=== PATIENT | female | born 2000 | race Caucasian/White ===

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

== ENCOUNTER 2021-02-26 15:41 | Outpatient (REF) | payer BC, SELFPAY ==
--- NOTE | ~2021-02-26 | US_ITS ---
EXAMINATION: US RETROPERITONEAL LIMITED (RENAL ONLY) CLINICAL INFORMATION: Calculus of kidney. COMPARISON: CT abdomen and pelvis 12/12/2020. TECHNIQUE: Real-time imaging of the kidneys. FINDINGS: RIGHT KIDNEY: 11.0 x 4.3 x 5.9 cm (SAG x AP x TRV). The kidney is normal in size, contour, and echogenicity. Renal cortical thickness is normal. 4 mm nonobstructing mid pole calculus. No hydronephrosis. LEFT KIDNEY: 12.1 x 4.6 x 5.2 cm (SAG x AP x TRV). The kidney is normal in size, contour, and echogenicity. Renal cortical thickness is normal. No calculi or focal parenchymal lesions. No hydronephrosis. US/US renal BI IMPRESSION: 4 mm nonobstructing right renal calculus. No hydronephrosis.
== END 2021-02-26 15:42 | disposition home or self-care (01) ==
LOC: HO.HMGCX 15:41
PROVIDERS: Visit Provider Urology
DX: N20.0 Calculus of kidney (principal)
CPT/HCPCS: 76775

== ENCOUNTER → 2021-08-19 15:32 | Outpatient (BNVA) | payer BC, SELFPAY | PROVIDERS: Visit Provider Advanced Practice Midwife ==

== ENCOUNTER → 2021-11-01 14:09 | Outpatient (BNVA) | payer BC, SELFPAY | PROVIDERS: Visit Provider Advanced Practice Midwife | DX: Z13.89 Encounter for screening for other disorder (principal) ==

== ENCOUNTER 2023-03-17 14:38 | Outpatient (REF) | payer BC, SELFPAY ==
[2023-03-18 11:41] LABS: CT PCR NOT DETECTED (Not Detect.); NG PCR NOT DETECTED (Not Detect.)
== END 2023-03-17 14:39 | disposition home or self-care (01) ==
LOC: HO.LNP 14:38
PROVIDERS: Visit Provider Advanced Practice Midwife
DX: Z01.419 Encounter for gynecological examination (general) (routine) without abnormal findings (principal); Z20.2 Contact with and (suspected) exposure to infections with a predominantly sexual mode of transmission; L68.0 Hirsutism; R35.0 Frequency of micturition; N92.6 Irregular menstruation, unspecified
CPT/HCPCS: 0353U; 88142

== ENCOUNTER 2023-03-17 14:38 | Outpatient (AMB) | payer BC, SELFPAY ==
--- NOTE | 2023-03-17 14:45 | A.OFFVIS_ITS ---
Intake Vital Signs 03/17/23 14:46 03/17/23 16:18 Height 5 ft 5 in Weight 224 lb BMI 37.3 37.3 BP 112/76 Intake Visit Reasons: Annual Intake Note: The patient agreed to use of a medical microbiologist during this encounter. Scribed for ANGEL LUIS Le by Cintia Avila medical microbiologist, on 03/17/2023 at 3:00 pm EST. Chef De Cuisine: Chef De Cuisine Present (Antionette) Allergies sulfamethoxazole [From BACTRIM] Allergy (Intermediate, Verified 03/17/23 14:46) HIVES trimethoprim [From BACTRIM] Allergy (Intermediate, Verified 03/17/23 14:46) HIVES bactrim Allergy (Unknown, Uncoded 05/31/22 11:05) hives Is last menstrual period known: Yes Last menstrual period: 03/12/23 HPI HPI Comments History of Present Illness Details She is a premenopausal woman presenting for annual exam. She admits to not eating healthy since vacationing, but has lost weight successfully on her own in the past. Complains of frequency of urination and was previously taking OTC cranberry supplements but stopped. Currently sexually active. Uses [facility] for BC. Reports irregular menses and hirsutism. FMHx of PCOS; mother. Denies vaginal itching and irritation. STD screening offered; she accepts. Denies family hx of breast, colon and ovarian cancer. [facility] Medical History Anxiety Frequency of urination Hirsutism Irregular menses Kidney stones Surgical History History of surgery Family History Father Diabetes Mother PCOS (polycystic ovarian syndrome) Social History Alcohol intake: current Alcohol intake frequency: holidays/special occasions only Patient Tobacco Use Status: Never used Tobacco Substance Use Type: Marijuana Advance Directives: No Advance Directives Information Provided: No Sexual orientation: Straight/Heterosexual Gender identity: Female Female Reproductive History Menstrual Age of Menarche: 14 Duration of menses: 6-7 days Date of last menstrual period: 03/12/23 control method: pills Total pregnancies: 0 Physical Exam Vital Signs: Last Vital Signs BP 112/76 03/17/23 14:46 BMI result Body Mass Index 37.3 Const General: cooperative, healthy appearing, no acute distress, well developed and alert Orientation/consciousness: patient oriented x3 HEENT Other: small amount of facial hair present; trimmed. Head: Yes normal to inspection Eyes General: appearance normal, both eyes and all related structures Neck Neck: Yes normal visual inspection Thyroid: Thyroid normal Chest Chest palpation & inspection: normal inspection of the chest Breast/axilla inspection: normal inspection of the breasts (no puckering, dimpling, peau de orange, retraction, discharge, masses) Breast/axilla palpation: normal palpation of the breasts Resp Effort & Inspection: normal respiratory effort GI Inspection: Yes normal to inspection Palpation (GI): Soft to palpation (to palpation) Rectal Exam - Female: deferred General: Yes bladder normal to inspection External Female Exam: normal external appearance and normal appearance of the urethra Speculum Exam - Vagina: normal appearance of the vagina, normal palpation, normal vaginal discharge and other (small amount of blood present) Speculum Exam - Cervix: normal appearance of the cervix and normal palpation Bimanual exam- vagina & uterus: normal palpation and normal palpation Bimanual Exam- Adnexa, other: normal adnexae and no masses Skin General skin exam: no rashes or lesions noted Neuro General: patient oriented x3 Cognition (Neuro): normal cognition Extrem General: Yes normal to inspection Psych Attitude: cooperative Thought process: Normal thought process present Assessment & Plan Assessment & Plan (1) Encounter for well woman exam: Code(s): Z01.419 - Encounter for gynecological examination (general) (routine) without abnormal findings Plan: Discussed: Current recommendations for pap smears per ASCCP guidelines Breast awareness and periodic self breast exams. Maintaining a healthy lifestyle including a well balanced diet and routine exercise. Encouraged to use condoms for STD prevention. Encouraged patient to sign up for patient portal. All of her questions and concerns were addressed to the best of my ability. RTO in one year for AG. (2) Hirsutism: Code(s): L68.0 - Hirsutism Plan: Blood work ordered. Follow up for results. (3) Potential exposure to STD: Code(s): Z20.2 - Contact with and (suspected) exposure to infections with a predominantly sexual mode of transmission Plan: BV testing and GC/CT panel done today. Await results and treat accordingly. (4) Irregular menses: Code(s): N92.6 - Irregular menstruation, unspecified Plan: Pelvic US ordered. Follow up for results. (5) Frequency of urination: Code(s): R35.0 - Frequency of micturition (6) Hirsutism: Code(s): L68.0 - Hirsutism (7) Oligomenorrhea: Code(s): N91.5 - Oligomenorrhea, unspecified Orders: Orders US pelvic and transvaginal 03/17/23 N92.6 - Irregular menstruation, unspecified Pap Smear 03/17/23 Z01.419 - Encounter for gynecological examination (general) (routine) without abnormal findings UA CC w/rflx Micro + Cult 03/17/23 R35.0 - Frequency of micturition Hepatitis C Antibody 03/17/23 Z20.2 - Contact with and (suspected) exposure to infections with a predominantly sexual mode of transmission Testosterone, Free/Total 03/17/23 N92.6 - Irregular menstruation, unspecified, L68.0 - Hirsutism Thyroid Stimulating Hormone 03/17/23 N92.6 - Irregular menstruation, unspecif ied, L68.0 - Hirsutism 17 Hydroxyprogesterone 03/17/23 N92.6 - Irregular menstruation, unspecified, L68.0 - Hirsutism CT NG by PCR 03/17/23 Z20.2 - Contact with and (suspected) exposure to infections with a predominantly sexual mode of transmission Hepatitis B Core Antibody 03/17/23 Z20.2 - Contact with and (suspected) exposure to infections with a predominantly sexual mode of transmission HIV Ab/Ag 03/17/23 Z20.2 - Contact with and (suspected) exposure to infections with a predominantly sexual mode of transmission Syphilis Screen 03/17/23 Z20.2 - Contact with and (suspected) exposure to infections with a predominantly sexual mode of transmission DHEA Sulfate 03/17/23 N92.6 - Irregular menstruation, unspecified, L68.0 - Hirsutism Prolactin 03/17/23 N92.6 - Irregular menstruation, unspecified, L68.0 - Hirsutism HCG Quantitative 03/17/23 N92.6 - Irregular menstruation, unspecified, L68.0 - Hirsutism Follicle Stimulating Hormone 03/17/23 N91.5 - Oligomenorrhea, unspecified Coding Level of Care Code Est Pt Prev Care 18-39y([id number]) Diagnoses Encounter for well woman exam Z01.419 Hirsutism L68.0 Potential exposure to STD Z20.2 Irregular menses N92.6 Frequency of urination R35.0 Oligomenorrhea N91.5
[2023-03-17 14:46] VITALS: BP 112/76; BMI 37.3
--- NOTE | 2023-03-17 16:17 | A.OFFVIS_ITS ---
Intake Vital Signs 03/17/23 14:46 03/17/23 16:18 Height 5 ft 5 in Weight 224 lb BMI 37.3 37.3 BP 112/76 Intake Visit Reasons: Annual Allergies sulfamethoxazole [From BACTRIM] Allergy (Intermediate, Verified 03/17/23 14:46) HIVES trimethoprim [From BACTRIM] Allergy (Intermediate, Verified 03/17/23 14:46) HIVES bactrim Allergy (Unknown, Uncoded 05/31/22 11:05) hives HPI HPI Comments History of Present Illness Details She is a premenopausal woman presenting for annual exam. She admits to eating healthy and tries to stay active with exercise. Reports during vacation this summer she loss weight and she knows she can loose weight with proper diet if she tried. Reports Hx of UTI and frequent urination; has stopped taking OTC cranberry supplements Currently sexually active. Uses Apri for BC and is doing well with it. Report hirsutism and irregular menses skipping 6 months at a time. FMHx of PCOS; mother Denies vaginal itching and irritation. STD screening offered; she accepts. Denies family hx of breast, colon and ovarian cancer. This is her first pap smear today. [facility] Medical History Anxiety Frequency of urination Hirsutism Irregular menses Kidney stones Surgical History History of surgery Family History Father Diabetes Mother PCOS (polycystic ovarian syndrome) Social History Alcohol intake: current Alcohol intake frequency: holidays/special occasions only Patient Tobacco Use Status: Never used Tobacco Substance Use Type: Marijuana Sexual orientation: Straight/Heterosexual Gender identity: Female Female Reproductive History Menstrual Age of Menarche: 14 Duration of menses: 6-7 days control method: pills Physical Exam Vital Signs: Last Vital Signs BP 112/76 03/17/23 14:46 BMI result Body Mass Index 37.3 Const General: cooperative, healthy appearing, no acute distress, well developed and alert Orientation/consciousness: patient oriented x3 HEENT Other: small amount of facial hair visible; trimmed Head: Yes normal to inspection Eyes General: appearance normal, both eyes and all related structures Neck Neck: Yes normal visual inspection Thyroid: Thyroid normal Chest Chest palpation & inspection: normal inspection of the chest Breast/axilla inspection: normal inspection of the breasts (no puckering, dimpling, peau de orange, retraction, discharge, masses) Breast/axilla palpation: normal palpation of the breasts Resp Effort & Inspection: normal respiratory effort GI Inspection: Yes normal to inspection Palpation (GI): Soft to palpation (to palpation) Rectal Exam - Female: deferred General: Yes bladder normal to inspection External Female Exam: normal external appearance and normal appearance of the urethra Speculum Exam - Vagina: normal appearance of the vagina, normal palpation, normal vaginal discharge and other (small amount of blood present) Speculum Exam - Cervix: normal appearance of the cervix and normal palpation Bimanual exam- vagina & uterus: normal palpation and normal palpation Bimanual Exam- Adnexa, other: normal adnexae and no masses Skin General skin exam: no rashes or lesions noted Neuro General: patient oriented x3 Cognition (Neuro): normal cognition Extrem General: Yes normal to inspection Psych Attitude: cooperative Thought process: Normal thought process present Assessment & Plan Assessment & Plan (1) Hirsutism: Code(s): L68.0 - Hirsutism Plan: PCOS lab work ordered. Follow up for results. (2) Irregular menses: Code(s): N92.6 - Irregular menstruation, unspecified Plan: Pelvic US ordered. Follow up for results in person. BV testing and GC/CT panel today. STD blood work ordered. Await results and treat accordingly. (3) Frequency of urination: Code(s): R35.0 - Frequency of micturition Plan: UA lab ordered. Follow up for results in person. Continue OTC cranberry supplements. (4) Encounter for well woman exam: Code(s): Z01.419 - Encounter for gynecological examination (general) (routine) without abnormal findings Plan: Discussed: Current recommendations for pap smears per ASCCP guidelines Breast awareness and periodic self breast exams. Maintaining a healthy lifestyle including a well balanced diet and routine exercise. Encouraged to use condoms for STD prevention. Encouraged patient to sign up for patient portal. All of her questions and concerns were addressed to the best of my ability. RTO in one year for AG. Orders: Orders CT NG by PCR Today Z20.2 - Contact with and (suspected) exposure to infections with a predominantly sexual mode of transmission US pelvic and transvaginal Today N92.6 - Irregular menstruation, unspecified UA CC w/rflx Micro + Cult Today R35.0 - Frequency of micturition Hepatitis B Core Antibody Today Z20.2 - Contact with and (suspected) exposure to infections with a predominantly sexual mode of transmission Hepatitis C Antibody Today Z20.2 - Contact with and (suspected) exposure to infections with a predominantly sexual mode of transmission HIV Ab/Ag Today Z20.2 - Contact with and (suspected) exposure to infections with a predominantly sexual mode of transmission Syphilis Screen Today Z20.2 - Contact with and (suspected) exposure to infections with a predominantly sexual mode of transmission 17 Hydroxyprogesterone Today L68.0 - Hirsutism, N92.6 - Irregular menstruation, unspecified DHEA Sulfate Today L68.0 - Hirsutism, N92.6 - Irregular menstruation, unspecified HCG Quantitative Today L68.0 - Hirsutism, N92.6 - Irregular menstruation, unspecified Prolactin Today L68.0 - Hirsutism, N92.6 - Irregular menstruation, unspecified Testosterone, Free/Total Today L68.0 - Hirsutism, N92.6 - Irregular menstruation, unspecified Thyroid Stimulating Hormone Today L68.0 - Hirsutism, N92.6 - Irregular menstruation, unspecified Follicle Stimulating Hormone Today N91.5 - Oligomenorrhea, unspecified Pap Smear Today Z01.419 - Encounter for gynecological examination (general) (routine) without abnormal findings Coding Level of Care Code Est Pt Prev Care 18-39y(13795) Diagnoses Hirsutism L68.0 Irregular menses N92.6 Frequency of urination R35.0 Encounter for well woman exam Z01.419
[2023-03-17 16:18] VITALS: BMI 37.3
== END 2023-03-17 15:16 | disposition home or self-care (01) ==
LOC: HO.HWS 14:38
PROVIDERS: Visit Provider Advanced Practice Midwife
DX: Z01.419 Encounter for gynecological examination (general) (routine) without abnormal findings (principal); L68.0 Hirsutism; N92.6 Irregular menstruation, unspecified; R35.0 Frequency of micturition
CPT/HCPCS: 99395

== ENCOUNTER 2023-03-23 01:32 | Emergency (ER) | payer BC, SELFPAY ==
[2023-03-23 01:40] VITALS: BP 130/82; PULSE 52; RESP 16; TEMP 36.7; O2SAT 96; BMI 34.2
[2023-03-23 02:43] LABS: Appearance Urine Cloudy; Color Urine Orange; Glucose Urine UA Negative (Negative); Leukocyte Esterase Urine Moderate (2+) (Negative); Nitrite Urine Positive (Negative); UMIC TRIGGER UACC YES; UPreg QC Valid YES; Urine Blood Trace (Negative); Urine Ketones Trace mg/dL (Negative); Urine Pregnancy NEGATIVE (NEGATIVE); Urine Protein 30 (1+) mg/dL (Neg-Trace)
[2023-03-23 03:25] LABS: Bacteria Urine 3+ (None Seen); Hyaline Casts Urine 0-2 /LPF (0-2); RBC Urine >20 /HPF (0-2); UACC Culture Trigger YES; WBC Urine 0-5 /HPF (0-5)
[2023-03-23 04:06] LABS: MANUAL DIFF FLAG NO
[2023-03-23 04:09] LABS: Basophils Absolute Auto 0.1 X10*3/uL (0.0-0.2); Basophils Percent Auto 0.4 % (0-2); Eosinophils Absolute Auto 0.1 X10*3/uL (0.0-0.4); Eosinophils Percent Auto 0.4 % (0-4); Hematocrit 38.3 % (37.0-47.0); Hemoglobin 13.1 g/dl (12.0-16.0); Imm Gran Abs Auto 0.04 X10*3/uL (0.00-0.03); Imm Gran Pct Auto 0.3 % (0.0-0.4); Lymphocytes Absolute Auto 1.6 X10*3/uL (1.2-4.9); Mean Corpuscular HGB Conc 34.2 g/dl (31.0-35.0); Mean Corpuscular Hemoglobin 30.8 pg (27.0-33.0); Mean Corpuscular Volume 90.1 fL (80.0-98.0); Mean Platelet Volume 11.4 fL (9.4-12.3); Monocytes Absolute Auto 0.8 X10*3/uL (0.1-1.2); Monocytes Percent Auto 6.6 % (2-11); Neutrophils Absolute Auto 9.4 x10*3/uL (2.0-8.3); Neutrophils Percent Auto 79.3 % (45-73); Platelet Count 258 X10*3/uL (160-400); Red Blood Count 4.25 X10*6/uL (4.20-5.50); Red Cell Distribution Width 13.4 % (11.0-16.0); White Blood Count 11.9 X10*3/uL (4.8-10.8)
[2023-03-23 04:28] LABS: Alanine Aminotransferase 38 U/L (0-31); Albumin Level 4.4 g/dL (3.5-5.0); Alkaline Phosphatase 57 U/L (39-117); Anion Gap 14 (12-20); Aspartate Amino Transferase 25 U/L (5-31); Bilirubin Total 0.7 mg/dL (0.0-1.0); Blood Urea Nitrogen 14 mg/dL (9-16); Calcium 10.1 mg/dL (8.4-10.2); Carbon Dioxide 23 mmol/L (22-29); Chloride 106 mmol/L (96-108); Creatinine Clr Calc Pharmacy 103.9; Estimated Glomerular Filt Rate > 60; Glucose Random 137 mg/dL (60-115); Potassium 3.7 mmol/L (3.3-5.1); Sodium 139 mmol/L (135-145); Total Protein 7.7 g/dL (6.5-8.0)
[2023-03-23 04:52] VITALS: BP 134/95; PULSE 56; RESP 18; TEMP 36.4; O2SAT 96
[2023-03-23] MEDS: cefTRIAXone sodium 1 GM in 0.9 % Sodium Chloride 50 ML IV (05:11)
[2023-03-23] MEDS: ondansetron HCL 4 MG/2 ML VIAL IVPUSH (05:11)
[2023-03-23] MEDS: 0.9 % Sodium Chloride 1,000 ML 999 ML IV (05:12)
[2023-03-23] MEDS: Ketorolac Tromethamine 30 MG/ML VIAL 15 MG IVPUSH (05:29)
--- NOTE | 2023-03-23 05:31 | ED.FEMALEGU ---
HPI - Female Genitourinary General Chief complaint: Urogenital-Female Stated complaint: possible kidney stone Time Seen by Provider: 03/23/23 04:00 Source: patient Mode of arrival: ambulatory History of Present Illness HPI Narrative: 22-year-old female who reports UTI symptoms for proximally 3 days a now reports at 01:00 she woke up with left flank pain, nausea and vomiting and continued dysuria. Related Data Home Medications Medication Instructions Recorded Confirmed fluoxetine 20 mg capsule (Prozac) 20 mg PO DAILY 08/19/21 05/31/22 Previous Rx's Medication Instructions Recorded desogestrel 0.15 mg-ethinyl 1 tab PO DAILY #84 tabs 07/30/22 estradiol 0.03 mg tablet (Apri) cefdinir 300 mg capsule 300 mg PO BID 7 days #14 caps 03/23/23 ondansetron HCl 4 mg tablet 4 mg PO Q8H PRN nausea and 03/23/23 vomiting 4 days #10 tabs Allergies Allergy/AdvReac Type Severity Reaction Status Date / Time sulfamethoxazole Allergy Intermediate HIVES Verified 03/17/23 14:46 [From BACTRIM] trimethoprim [From BACTRIM] Allergy Intermediate HIVES Verified 03/17/23 14:46 bactrim Allergy Unknown hives Uncoded 05/31/22 11:05 Review of Systems Review of Systems: Pertinent positives and negatives as stated in HPI [facility] Past Medical History Source: nursing notes reviewed Medical History Anxiety Frequency of urination Hirsutism Irregular menses Kidney stones Surgical History History of surgery Family History Family History Father Diabetes Mother PCOS (polycystic ovarian syndrome) Social History Social History Alcohol intake: current Alcohol intake frequency: holidays/special occasions only Patient Tobacco Use Status: Never used Tobacco Substance Use Type: Marijuana Advance Directives: No Advance Directives Information Provided: No Sexual orientation: Straight/Heterosexual Gender identity: Female Physical Exam Vital Signs: Vital Signs: Last Vital Signs Temp 97.5 F 03/23/23 04:52 Pulse 56 03/23/23 04:52 Resp 18 03/23/23 04:52 BP 134/95 H 03/23/23 04:52 Pulse Ox 96 03/23/23 04:52 O2 Del Method Room Air 03/23/23 04:52 BMI result Body Mass Index 34.2 VITAL SIGNS: Reviewed. GENERAL: Well developed, well nourished, in no acute distress. HEAD: Normocephalic/atraumatic EYES: PERRLA, EOMI EARS: Ext canals without abnormality NOSE: Nares patent bilateral OROPHARYNX: no oral lesions noted, posterior pharynx clear NECK: Supple, no adenopathy LUNGS: Normal breath sounds. No adventitious sounds or accessory muscle use. SpO2<96> CARDIOVASCULAR: Regular rate and rhythm without noted murmurs ABDOMEN: Soft, non-tender, non-distended with bowel sounds. MUSCULOSKELETAL: No tenderness, deformities, or effusions noted on gross inspection. EXTREMITIES: No cyanosis, clubbing or edema. SKIN: Inspection of the skin reveals no rashes NEUROLOGIC: Alert and oriented x 4. Strength and sensation to light touch were grossly intact x 4. Medications Administered Discontinued Medications Generic Name Dose Route Start Last Admin Trade Name Freq PRN Reason Stop Dose Admin Sodium Chloride 1,000 mls @ 999 mls/hr 03/23/23 05:00 03/23/23 06:14 Ns IV 03/23/23 06:00 Infused .Q1H1M MADHU Infusion Ceftriaxone Sodium 1 gm/ 50 mls @ 100 mls/hr 03/23/23 04:51 03/23/23 06:14 Sodium Chloride IV 03/23/23 05:20 Infused ONCE ONE Infusion Ketorolac Tromethamine 15 mg 03/23/23 05:20 03/23/23 05:29 Ketorolac Tromethamine 30 Mg/Ml Vial IVPUSH 03/23/23 05:21 15 mg ONCE ONE Administration Ondansetron HCl 4 mg 03/23/23 04:51 03/23/23 05:11 Ondansetron Hcl 4 Mg/2 Ml Vial IVPUSH 03/23/23 04:52 4 mg ONCE ONE Administration Medical Decision Making Medical Decision Making MDM Narrative: 22-year-old female with history and clinical presentation, DDX: Pyelonephritis, UTI, less likely felt to be renal colic. Reviewed all investigations and hematologic indices are significant for leukocytosis and left shift but no anemia or thrombocytopenia. Chemistry indices are grossly within normal limits without electrolyte or liver enzyme abnormalities, no DEANNE. Urinalysis is significantly positive for nitrite positive and leukocyte esterase with 3+ bacteria. Patient received IV fluids/Zofran/pain medication/antibiotics then be discharged home after p.o. challenge. On re-evaluation patient is feeling somewhat better and is able to tolerate oral intake. Differential Diagnosis Differential Diagnoses: The differential diagnosis associated with the presentation includes Please see the discussion above Admission/Observation Consideration of admission/observation: Escalation of care including admission/observation considered Please see the discussion above Lab Data MDM Lab Attestation statement: I reviewed the patient's lab results. Please see the discussion above 03/23/23 04:00 03/23/23 04:02 Labs: Lab Results 03/23/23 03/23/23 03/23/23 Range/Units 02:35 02:35 04:00 WBC 11.9 H (4.8-10.8) X10*3/uL RBC 4.25 (4.20-5.50) X10*6/uL Hgb 13.1 (12.0-16.0) g/dl Hct 38.3 (37.0-47.0) % MCV 90.1 (80.0-98.0) fL MCH 30.8 (27.0-33.0) pg MCHC 34.2 (31.0-35.0) g/dl RDW 13.4 (11.0-16.0) % Plt Count 258 (160-400) X10*3/uL MPV 11.4 (9.4-12.3) fL Immature Gran % (Auto) 0.3 (0.0-0.4) % Neut % (Auto) 79.3 H (45-73) % Lymph % (Auto) 13.0 L (20-40) % Weber % (Auto) 6.6 (2-11) % Eos % (Auto) 0.4 (0-4) % Baso % (Auto) 0.4 (0-2) % Lymph # (Auto) 1.6 (1.2-4.9) X10*3/uL Weber # (Auto) 0.8 (0.1-1.2) X10*3/uL Eos # (Auto) 0.1 (0.0-0.4) X10*3/uL Baso # (Auto) 0.1 (0.0-0.2) X10*3/uL Abs Immat Gran (auto) 0.04 H (0.00-0.03) X10*3/uL Absolute Neuts (auto) 9.4 H (2.0-8.3) x10*3/uL Absolute Nucleated RBC 0.000 (0.0-0.012) X10*3/uL Nucleated RBC % (auto) 0.0 (0.0-0.2) /100WBC Sodium (135-145) mmol/L Potassium (3.3-5.1) mmol/L Chloride (96-108) mmol/L Carbon Dioxide (22-29) mmol/L Anion Gap (12-20) BUN (9-16) mg/dL Creatinine (0.5-1.4) mg/dL Estim Creat Clear Calc Estimated GFR Random Glucose (60-115) mg/dL Calcium (8.4-10.2) mg/dL Total Bilirubin (0.0-1.0) mg/dL AST (5-31) U/L ALT (0-31) U/L Alkaline Phosphatase (39-117) U/L Total Protein (6.5-8.0) g/dL Albumin (3.5-5.0) g/dL Urine Color [place] A Urine Appearance Cloudy Urine pH 6.0 (5.0-9.0) Ur Specific [place] 1.020 (1.005-1.025) Urine Protein 30 (1+) H (Neg-Trace) mg/dL Urine Glucose (UA) Negative (Negative) mg/dL Urine Ketones Trace (Negative) mg/dL Urine Blood Trace H (Negative) Urine Nitrite Positive H (Negative) Ur Leukocyte Esterase Moderate (2+) H (Negative) Urine RBC >20 H (0-2) /HPF Urine WBC 0-5 (0-5) /HPF Ur Squamous Epith Cells 11-20 (0-2) /HPF Urine Bacteria 3+ (None Seen) Hyaline Casts 0-2 (0-2) /LPF Urine Test NEGATIVE (NEGATIVE) 03/23/23 Range/Units 04:02 WBC (4.8-10.8) X10*3/uL RBC (4.20-5.50) X10*6/uL Hgb (12.0-16.0) g/dl Hct (37.0-47.0) % MCV (80.0-98.0) fL MCH (27.0-33.0) pg MCHC (31.0-35.0) g/dl RDW (11.0-16.0) % Plt Count (160-400) X10*3/uL MPV (9.4-12.3) fL Immature Gran % (Auto) (0.0-0.4) % Neut % (Auto) (45-73) % Lymph % (Auto) (20-40) % Weber % (Auto) (2-11) % Eos % (Auto) (0-4) % Baso % (Auto) (0-2) % Lymph # (Auto) (1.2-4.9) X10*3/uL Weber # (Auto) (0.1-1.2) X10*3/uL Eos # (Auto) (0.0-0.4) X10*3/uL Baso # (Auto) (0.0-0.2) X10*3/uL Abs Immat Gran (auto) (0.00-0.03) X10*3/uL Absolute Neuts (auto) (2.0-8.3) x10*3/uL Absolute Nucleated RBC (0.0-0.012) X10*3/uL Nucleated RBC % (auto) (0.0-0.2) /100WBC Sodium 139 (135-145) mmol/L Potassium 3.7 (3.3-5.1) mmol/L Chloride 106 (96-108) mmol/L Carbon Dioxide 23 (22-29) mmol/L Anion Gap 14 (12-20) BUN 14 (9-16) mg/dL Creatinine 1.07 (0.5-1.4) mg/dL Estim Creat Clear Calc 103.9 Estimated GFR > 60 Random Glucose 137 H (60-115) mg/dL Calcium 10.1 (8.4-10.2) mg/dL Total Bilirubin 0.7 (0.0-1.0) mg/dL AST 25 (5-31) U/L ALT 38 H (0-31) U/L Alkaline Phosphatase 57 (39-117) U/L Total Protein 7.7 (6.5-8.0) g/dL Albumin 4.4 (3.5-5.0) g/dL Urine Color Urine Appearance Urine pH (5.0-9.0) Ur Specific [place] (1.005-1.025) Urine Protein (Neg-Trace) mg/dL Urine Glucose (UA) (Negative) mg/dL Urine Ketones (Negative) mg/dL Urine Blood (Negative) Urine Nitrite (Negative) Ur Leukocyte Esterase (Negative) Urine RBC (0-2) /HPF Urine WBC (0-5) /HPF Ur Squamous Epith Cells (0-2) /HPF Urine Bacteria (None Seen) Hyaline Casts (0-2) /LPF Urine Test (NEGATIVE) External Record Review External record reviewed: Outpatient record, Prior outpatient labs and Prior outpatient radiology Critical Care Time Critical Care Time Critical Care Time: Yes Total Critical Care Time: 30 Attestation: I personally attest to this time spent taking care of the patient. Discharge Plan Discharge Clinical Impression: Pyelonephritis Patient Disposition: Home, Self-Care Instructions: Kidney Infection (ED) Additional Instructions: 1. You have been prescribed antibiotics as well as antinausea medication. 2. Please continue to drink water and follow-up with primary care doctor in the next 1-2 days. Return to the ER for any worsening symptoms. Prescriptions: New ondansetron HCl 4 mg tablet 4 mg PO Q8H PRN (Reason: nausea and vomiting) 4 Days Qty: 10 0RF cefdinir 300 mg capsule 300 mg PO BID 7 Days Qty: 14 0RF No Action desogestrel-ethinyl estradiol [Apri] 0.15-0.03 mg tablet 1 tab PO DAILY Qty: 84 0RF fluoxetine [Prozac] 20 mg capsule 20 mg PO DAILY
--- NOTE | 2023-03-23 05:42 | PC.NURSE ---
late entry- 20g iv placed in L AC. pt medicated according to mar. per dr roach pt does not need blood cultures prior to administration of iv antibiotics
--- NOTE | 2023-03-23 07:16 | PC.NURSE ---
assumed care of this pt at 0700. pt cleared for discharge on assuming care. discharge instructions reviewed with pt. iv removed, denies pain.
== END 2023-03-23 07:16 | disposition home or self-care (01) ==
PROVIDERS: Emergency Provider Student in an Organized Health Care Education/Training Program
DX: N12 Tubulo-interstitial nephritis, not specified as acute or chronic (principal); R10.9 Unspecified abdominal pain; R30.0 Dysuria; R11.2 Nausea with vomiting, unspecified; Z79.899 Other long term (current) drug therapy
CPT/HCPCS: 36415; 80053; 81001; 81025; 85025; 87086; 96365; 96375; 99283; 99284; J0696; J1885; J2405

== ENCOUNTER 2023-10-15 11:18 | Outpatient (AMB) | payer BC, SELFPAY ==
--- NOTE | 2023-10-15 11:23 | MHC.OFFVIS ---
Intake Vital Signs 10/15/23 11:24 Height 5 ft 8 in Weight 225 lb BMI 34.2 BP 110/66 Intake Visit Reasons: control follow up/45 min per BM Manager Analysis: Manager Analysis Present Allergies sulfamethoxazole [From BACTRIM] Allergy (Intermediate, Verified 10/15/23 11:23) HIVES trimethoprim [From BACTRIM] Allergy (Intermediate, Verified 10/15/23 11:23) HIVES bactrim Allergy (Unknown, Uncoded 05/31/22 11:05) hives Is last menstrual period known: Yes Last menstrual period: 10/09/23 HPI HPI Comments History of Present Illness Details Patient is here today for follow-up pill check. She is doing well on her Apri and has no concerns. She denies any contraindications to control such as: migraines with aura, history of DVT or pulmonary emboli, high blood pressure, liver disease, thrombolic disorders, Lupus, +VINCENT, breast cancer, or smoking. [facility] Medical History Frequency of urination Irregular menses Hirsutism Anxiety Kidney stones Surgical History History of surgery Family History Father Diabetes Mother PCOS (polycystic ovarian syndrome) Social History Alcohol intake: current Alcohol intake frequency: holidays/special occasions only Patient Tobacco Use Status: Never used Tobacco Substance Use Type: Marijuana Sexual orientation: Straight/Heterosexual Gender identity: Female Female Reproductive History Menstrual Age of Menarche: 14 Date of last menstrual period: 10/09/23 control method: pills Review of Systems Const All systems reviewed & are unremarkable except as noted in HPI and below Endo Reports no additional complaints Physical Exam Vital Signs: Last Vital Signs BP 110/66 10/15/23 11:24 BMI result Body Mass Index 34.2 Const General: cooperative, healthy appearing and no acute distress Psych Appearance: well kempt Attitude: cooperative Thought process: Normal thought process present Assessment & Plan Assessment & Plan (1) Contraceptive surveillance: Code(s): Z30.40 - Encounter for surveillance of contraceptives, unspecified Qualifiers: Contraceptive type: pill Qualified Code(s): Z30.41 - Encounter for surveillance of contraceptive pills Plan Continue with control pills. Use of condoms if needed. control hormone use warnings: go to ER if and loss of vision, blindness, severe headache, chest pain or difficulty breathing, severe abdominal pain, or any pain or swelling in an extremity. Annual exam scheduled for March 2024. Refills sent in until her next annual. This note is constructed using voice recognition software. While every effort has been made to ensure accuracy, junior java developer errors may have been included. Medications: Refilled desogestrel-ethinyl estradiol 0.15-0.03 mg (Apri) 1 tab PO DAILY 84 tabs 1RF Coding Level of Care Code Est Pt Level 3 (45932) Diagnoses Encounter for surveillance of contraceptive pills Z30.41 Contraceptive type: pill
[2023-10-15 11:24] VITALS: BP 110/66; BMI 34.2
== END 2023-10-15 11:38 | disposition home or self-care (01) ==
PROVIDERS: Visit Provider Advanced Practice Midwife
DX: Z30.41 Encounter for surveillance of contraceptive pills (principal)
CPT/HCPCS: 99213

== ENCOUNTER → 2023-10-15 11:18 | Outpatient (BNVA) | payer BC, SELFPAY | PROVIDERS: Visit Provider Advanced Practice Midwife ==

== ENCOUNTER 2024-04-01 10:02 | Outpatient (REF) | payer BC, SELFPAY | END 2024-04-01 10:03 | disposition home or self-care (01) | LOC: HO.LAB 10:02 | PROVIDERS: Visit Provider Advanced Practice Midwife | DX: Z13.89 Encounter for screening for other disorder (principal) ==

== ENCOUNTER 2024-04-01 10:02 | Outpatient (AMB) | payer BC, SELFPAY ==
--- NOTE | 2024-04-01 10:05 | MHC.OFFVIS ---
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 Doing well with no concerns. She tries to eat healthy and stays active with exercise. OCP user, she denies any contraindications to control such as: migraines with aura, history of DVT or pulmonary emboli, high blood pressure, liver disease, thrombolic disorders, Lupus, +VINCENT, breast cancer, or smoking. Currently is not sexually active. She denies vaginal itching and irritation. STI screening offered; she accepts. Denies family history of breast, ovarian or colon cancer. Last pap smear 2022, negative. [facility] Medical History Frequency of urination Irregular menses Hirsutism Anxiety Kidney stones Surgical History History of surgery Family History Father Diabetes Mother PCOS (polycystic ovarian syndrome) Social History (Updated 04/01/24 @ 10:39 by Berenice Ornelas CNM) Alcohol intake: current Alcohol intake frequency: holidays/special occasions only Patient Tobacco Use Status: Never used Tobacco Substance Use Type: Marijuana Current occupation: [employer] Sexual orientation: Straight/Heterosexual Gender identity: Female Female Reproductive History Menstrual Age of Menarche: 14 Duration of menses: 3-5 days Date of last menstrual period: 03/18/24 control method: pills Total pregnancies: 0 Date of last pap smear: 03/17/23 (neg) Review of Systems Const All systems reviewed & are unremarkable except as noted in HPI and below Reports as per HPI Eyes Reports no additional complaints ENT Reports no additional complaints Card Reports no additional complaints Resp Reports no additional complaints GI Reports as per HPI and Reports no additional complaints Reports as per HPI Musc Reports no additional complaints Skin/Breast Reports as per HPI Neuro Reports no additional complaints Psych Reports no additional complaints Endo Reports no additional complaints Nico/Lymph Reports no additional complaints Aller/Immun Reports no additional complaints Physical Exam Vital Signs: Last Vital Signs BP 114/66 04/01/24 10:06 BMI result Body Mass Index 32.1 Const General: cooperative, healthy appearing, no acute distress, well developed and alert Orientation/consciousness: patient oriented x3 HEENT Head: Yes normal to inspection Eyes General: appearance normal, both eyes and all related structures Neck Neck: Yes normal visual inspection Thyroid: Thyroid normal Chest Chest palpation & inspection: normal inspection of the chest and other (no puckering, dimpling, peau de orange, retraction, discharge, masses) Breast/axilla inspection: normal inspection of the breasts Breast/axilla palpation: normal palpation of the breasts Resp Effort & Inspection: normal respiratory effort GI Inspection: Yes normal to inspection Palpation (GI): Soft to palpation Rectal Exam - Female: deferred General: Yes bladder normal to palpation External Female Exam: normal external appearance and normal appearance of the urethra Speculum Exam - Vagina: normal appearance of the vagina, normal palpation and normal vaginal discharge Speculum Exam - Cervix: normal appearance of the cervix and normal palpation Bimanual exam- vagina & uterus: normal bimanual exam, normal palpation, uterine size normal, bladder normal to palpation, normal palpation and non-tender Bimanual Exam- Adnexa, other: no masses Skin General skin exam: no rashes or lesions noted Rashes: no rashes Neuro General: patient oriented x3 Cognition (Neuro): normal cognition Extrem General: Yes normal to inspection Psych Attitude: cooperative Thought process: Normal thought process present Assessment & Plan Assessment & Plan (1) Encounter for well woman exam with routine gynecological exam: Code(s): Z01.419 - Encounter for gynecological examination (general) (routine) without abnormal findings Category: Medical Plan Discussed: Current recommendations for pap smears per ASCCP guidelines. Breast awareness and periodic breast exams. Maintain a healthy lifestyle including a well balanced diet and routine exercise. Use condoms for STI and prevention. control hormone use warnings: go to ER if and loss of vision, blindness, severe headache, chest pain or difficulty breathing, severe abdominal pain, or any pain or swelling in an extremity. Patient verbalizes understanding and agrees to the plan of care. She was given opportunity to ask questions and all questions were answered to the best of my ability. 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 This note is constructed using voice recognition software. While every effort has been made to ensure accuracy, airways control specialist errors may have been included. Orders: Orders Bacterial Vaginosis Panel Today Z20.2 - Contact with and (suspected) exposure to infections with a predominantly sexual mode of transmission CT NG by PCR Today Z20.2 - Contact with and (suspected) exposure to infections with a predominantly sexual mode of transmission Medications: Refilled desogestrel-ethinyl estradiol 0.15-0.03 mg (Apri) 1 tab PO DAILY 84 tabs 4RF Coding Level of Care Code Est Pt Prev Care 18-39y(48776) Diagnoses Encounter for well woman exam with routine gynecological exam Z01.419
[2024-04-01 10:06] VITALS: BP 114/66; BMI 32.1
== END 2024-04-01 12:55 | disposition home or self-care (01) ==
PROVIDERS: Visit Provider Advanced Practice Midwife
DX: Z01.419 Encounter for gynecological examination (general) (routine) without abnormal findings (principal)
CPT/HCPCS: 99395

== ENCOUNTER 2024-04-01 10:45 | Outpatient (REF) | payer BC, SELFPAY ==
[2024-04-05 04:52] LABS: CT PCR NOT DETECTED (Not Detect.); NG PCR NOT DETECTED (Not Detect.)
[2024-04-05 11:12] LABS: Bacterial Vaginosis PCR POSITIVE (Negative); Candida Group PCR NOT DETECTED (Not Detect); Candida glab krusei PCR NOT DETECTED (Not Detect); Trichomonas vaginalis PCR NOT DETECTED (Not Detect)
== END 2024-04-01 10:46 | disposition home or self-care (01) ==
LOC: HO.LNP 10:45
PROVIDERS: Visit Provider Advanced Practice Midwife
DX: Z20.2 Contact with and (suspected) exposure to infections with a predominantly sexual mode of transmission (principal)
CPT/HCPCS: 0352U; 87491; 87591